=== PATIENT | female | born 1960 | race Caucasian/White ===

== ENCOUNTER 2021-07-15 21:33 | Emergency (ER) | payer MEDICAID ==
[~2021-07-15] VITALS: Ht 154.9 cm; Wt 64.9 kg
[2021-07-15 21:40] VITALS: BP_SYST 147
== END 2021-07-15 22:50 | disposition left against medical advice (07) ==
LOC: SED 21:33
DX: R22.0 Localized swelling, mass and lump, head (principal); Z53.21 Procedure and treatment not carried out due to patient leaving prior to being seen by health care provider; T78.40XA Allergy, unspecified, initial encounter

== ENCOUNTER 2021-08-24 16:40 | Emergency (ER) | payer OTHER, MEDICAID ==
[~2021-08-24] VITALS: Ht 154.9 cm; Wt 64.9 kg
[2021-08-24 16:54] VITALS: BP_SYST 122
[2021-08-24] MEDS ORDERED: ACET-2634 PO (18:17)
[2021-08-24] MEDS ORDERED: SOM350 PO (18:17)
[2021-08-24 18:43] VITALS: BP_SYST 126
== END 2021-08-24 18:43 | disposition home or self-care (01) ==
LOC: SED 16:40
DX: S13.9XXA Sprain of joints and ligaments of unspecified parts of neck, initial encounter (principal); S33.5XXA Sprain of ligaments of lumbar spine, initial encounter; Z79.899 Other long term (current) drug therapy; Z88.8 Allergy status to other drugs, medicaments and biological substances; Z90.710 Acquired absence of both cervix and uterus; V49.29XA Unspecified car occupant injured in collision with other motor vehicles in nontraffic accident, initial encounter; Y93.89 Activity, other specified; Y92.89 Other specified places as the place of occurrence of the external cause; Y99.8 Other external cause status
CPT/HCPCS: 71045; 72040-TC; 72100-TC; 99284